=== PATIENT | female | born 1940 | race Caucasian/White ===

== ENCOUNTER 2024-02-26 14:14 | Outpatient (AMB) | payer MEDICARE, SELFPAY ==
--- NOTE | 2024-02-26 14:26 | AM.OFFWIN_ITS ---
Intake Vital Signs 02/26/24 14:27 Weight 178 lb BP 134/82 Blood Pressure Location Rt brachial Position Sitting Pulse 74 Pulse Source Pulse Oximeter Pulse Oximetry (%) 98 Oxygen Delivery Method Room Air Intake Visit Reasons: [employer] Red painful spot under lt arm Intake Note: Patient here for red painful spot under left arm that has been present since Friday. Patient Tobacco Use Status: Never used Tobacco Allergies midazolam [From Versed] Adverse Reaction (Intermediate, Verified 02/26/24 14:29) Vomiting Do you need a note to return to daycare/school/sports/work: No HPI HPI Comments History of Present Illness Details Patient is an 83-year-old female complaining of a painful cyst in her left armpit. She states it has been there for 2 days and has drained a little but it has become more painful. [facility] Social History Patient Tobacco Use Status: Never used Tobacco Review of Systems Const All systems reviewed & are unremarkable except as noted in HPI and below Physical Exam Vital Signs: Last Vital Signs Pulse 74 02/26/24 14:27 BP 134/82 02/26/24 14:27 Pulse Ox 98 02/26/24 14:27 Oxygen Delivery Method Room Air 02/26/24 14:27 Const General: cooperative, healthy appearing, comfortable, no acute distress and well developed Orientation/consciousness: patient oriented x3 Limitations: no limitations HEENT Head: Yes normal to inspection Eyes General: appearance normal, both eyes and all related structures Neck Neck: Yes normal visual inspection and Yes full ROM Resp Effort & Inspection: normal respiratory effort and able to speak in complete sentences Skin Other: 1cm area of erythema with central pinpoint oozing of purulent fluid, indurated area around it, very tender to palpation; no ecchymosis, no lesions, no lacerations or abrasions noted Neuro General: patient oriented x3 Extrem General: Yes normal to inspection Office Procedures I&D Drain Details: Able to express 2 cc of purulent fluid followed by 1 cc of blood. Cleaned area and applied gauze with a bandage [id number] of Skin Abscess, simple All charges added?: Procedure code (CPT) selection complete Assessment & Plan Assessment & Plan (1) Abscess: Code(s): L02.91 - Cutaneous abscess, unspecified Plan: Able to drain purulent fluid but then it just became bloody so we stopped, applied a gauze bandage with tape. There is an area of induration which I will send antibiotics for to clear this up completely. Plan See above Medications: New doxycycline hyclate 100 mg PO BID 10 tabs 0RF Coding Level of Care Code New Pt Level 4 (28311) Diagnoses Abscess L02.91 CPT Codes I&D Drain - Drain 1: [id number] of Skin Abscess, simple ([id number])
[2024-02-26 14:27] VITALS: BP 134/82; PULSE 74; O2SAT 98
== END 2024-02-26 15:28 | disposition home or self-care (01) ==
PROVIDERS: PCP Nurse Practitioner Family; Visit Provider Physician Assistant
DX: L02.91 Cutaneous abscess, unspecified (principal)

== ENCOUNTER 2024-02-26 14:14 | Outpatient (REF) | payer MEDICARE, SELFPAY | END 2024-02-26 14:15 | disposition home or self-care (01) | LOC: HO.LAB 14:14 | PROVIDERS: PCP Nurse Practitioner Family; Visit Provider Physician Assistant | DX: L02.91 Cutaneous abscess, unspecified (principal) | CPT/HCPCS: 10060; 87070; 87077; 87186; 87205; 99202 ==